=== PATIENT | female | born 1950 | race Caucasian/White ===

== ENCOUNTER 2018-04-11 15:11 | Emergency (ER) | payer MEDICARE, MEDICAID ==
[~2018-04-11] VITALS: Ht 167.6 cm; Wt 108.0 kg
[2018-04-11 15:16] VITALS: BP 144/119
[2018-04-11] MEDS ORDERED: DILTIAZEM 25 MG/5 ML INJ (CARDIZEM) VIAL IVP ONE (15:30)
[2018-04-11] MEDS ORDERED: ASPIRIN 81 MG CHEW (CHILDREN'S ASA) PO ONE (15:30)
--- NOTE | 2018-04-11 15:30 | ED General ---
General Stated Complaint: ELEV BP/AFIB Source of Information: Patient Exam Limitations: No Limitations History of Present Illness Date Seen by Provider: Apr 11, 2018 Time Seen by Provider: 15:26 Initial Comments To ER from Dr. Cottrell's office by private vehicle with reports of atrial fibrillation and hypertension. She was there for outpatient cataract surgery. This was to be done on the right eye. She had an IV started and was given 2 mg of Versed. Her heart rate was noted to be elevated as was her blood pressure. She was given 5 mg of labetalol IV. After identifying the arrhythmia they sent her to the emergency room. Upon arrival to the emergency room the patient states that she has been told that she has atrial fibrillation before. She formerly saw Dr. Law from cardiology at [facility] about 2 years ago. She states that she was advised she should take warfarin but because it spelled " rat poison" she wasn't going to take it. She also didn't want to take any new medications that hadn't been on the market for very long to them the blood. She is aware of the associated stroke risk stating "I know I know" when I discussed with her the risk of stroke associated with atrial fibrillation. On arrival to the emergency room she is tachycardic anywhere from 120-140 atrial fibrillation and hypertensive. Discussed with the patient that she would likely need to be admitted for cardiac evaluation and she states "no, I'll sign out AGAINST MEDICAL ADVICE, I have a sick puppy at home." Timing/Duration: 1-2 Days Severity: Moderate Allergies and Home Medications Allergies Coded Allergies: No Known Drug Allergies (Unverified , 04/11/18) Home Medications Apixaban 5 Mg Tablet, 5 MG PO BID Prescribed by: GRACE PIMENTEL on 04/11/18 1643 Diltiazem HCl 180 Mg Cap.er.24h, 180 MG PO DAILY Prescribed by: GRACE PIMENTEL on 04/11/18 1616 Patient Home Medication List Home Medication List Reviewed: Yes Review of Systems Review of Systems Constitutional: see HPI EENTM: see HPI Respiratory: no symptoms reported; No cough, No dyspnea on exertion, No short of breath Cardiovascular: no symptoms reported Genitourinary: no symptoms reported Musculoskeletal: no symptoms reported Skin: no symptoms reported Psychiatric/Neurological: No Symptoms Reported Hematologic/Lymphatic: No Symptoms Reported Past Nbdjuzw-Ymglvm-Ennhht Hx Patient Social History Recent Foreign Travel: No Contact w/Someone Who Travel: No Physical Exam Vital Signs Vital Signs - First Documented 04/11/18 15:16 Temp 98.0 Pulse 130 Resp 26 B/P (MAP) 144/119 (127) Pulse Ox 98 O2 Delivery Room Air Capillary Refill : Height, Weight, BMI Height: '" Weight: lbs. oz. kg; BMI Method: General Appearance: No Apparent Distress, WD/WN Eyes: Bilateral Eye Normal Inspection, Bilateral Eye PERRL, Bilateral Eye EOMI HEENT: PERRL/EOMI Neck: Full Range of Motion, Normal Inspection Respiratory: Normal Breath Sounds, No Accessory Muscle Use, No Respiratory Distress Cardiovascular: Normal Peripheral Pulses, Tachycardia Gastrointestinal: Normal Bowel Sounds, Non Tender, Soft Extremity: Normal Capillary Refill, Normal Inspection Neurologic/Psychiatric: Alert, Oriented x3, No Motor/Sensory Deficits Skin: Normal Color (Right), Warm/Dry Progress/Results/Core Measures Suspected Sepsis SIRS Temperature: Pulse: Respiratory Rate: Laboratory Tests 04/11/18 15:35: White Blood Count 7.8 Blood Pressure / Mean: Laboratory Tests 04/11/18 15:35: Creatinine 0.77, INR Comment 1.0, Platelet Count 182, Total Bilirubin 0.8 Results/Orders Lab Results Laboratory Tests Test 04/11/18 15:35 Range/Units White Blood Count 7.8 4.3-11.0 10^3/uL Red Blood Count 4.43 4.35-5.85 10^6/uL Hemoglobin 13.6 11.5-16.0 G/DL Hematocrit 40 35-52 % Mean Corpuscular Volume 91 80-99 FL Mean Corpuscular Hemoglobin 31 25-34 PG Mean Corpuscular Hemoglobin Concent 34 32-36 G/DL Red Cell Distribution Width 12.8 10.0-14.5 % Platelet Count 182 130-400 10^3/uL Mean Platelet Volume 10.4 7.4-10.4 FL Neutrophils (%) (Auto) 65 42-75 % Lymphocytes (%) (Auto) 25 12-44 % Monocytes (%) (Auto) 9 0-12 % Eosinophils (%) (Auto) 1 0-10 % Basophils (%) (Auto) 0 0-10 % Neutrophils # (Auto) 5.1 1.8-7.8 X 10^3 Lymphocytes # (Auto) 1.9 1.0-4.0 X 10^3 Monocytes # (Auto) 0.7 0.0-1.0 X 10^3 Eosinophils # (Auto) 0.1 0.0-0.3 10^3/uL Basophils # (Auto) 0.0 0.0-0.1 10^3/uL Prothrombin Time 13.3 12.2-14.7 SEC INR Comment 1.0 0.8-1.4 Activated Partial Thromboplast Time 24 24-35 SEC Sodium Level 140 135-145 MMOL/L Potassium Level 3.6 3.6-5.0 MMOL/L Chloride Level 106 98-107 MMOL/L Carbon Dioxide Level 22 21-32 MMOL/L Anion Gap 12 5-14 MMOL/L Blood Urea Nitrogen 9 7-18 MG/DL Creatinine 0.77 0.60-1.30 MG/DL Estimat Glomerular Filtration Rate > 60 BUN/Creatinine Ratio 12 Glucose Level 102 70-105 MG/DL Calcium Level 10.4 H 8.5-10.1 MG/DL Corrected Calcium 10.2 H 8.5-10.1 MG/DL Magnesium Level 1.9 1.8-2.4 MG/DL Total Bilirubin 0.8 0.1-1.0 MG/DL Aspartate Amino Transf (AST/SGOT) 16 5-34 U/L Alanine Aminotransferase (ALT/SGPT) 16 0-55 U/L Alkaline Phosphatase 74 40-136 U/L Myoglobin 46.4 10.0-92.0 NG/ML Troponin I < 0.30 <0.30 NG/ML B-Type Natriuretic Peptide 193.5 H <100.0 PG/ML Total Protein 7.3 6.4-8.2 GM/DL Albumin 4.3 3.2-4.5 GM/DL My Orders Orders - GRACE PIMENTEL SNOW BLOWER Cbc With Automated Diff (04/11/18 15:22) Magnesium (04/11/18 15:22) Chest 1 View, Ap/Pa Only (04/11/18 15:22) Ekg Tracing (04/11/18 15:22) Cardiac Profile 1 (04/11/18 15:22) Comprehensive Metabolic Panel (04/11/18 15:22) Myoglobin Serum (04/11/18 15:22) Protime With Inr (04/11/18 15:22) Partial Thromboplastin Time (04/11/18 15:22) O2 (04/11/18 15:22) Monitor-Rhythm Ecg Trace Only (04/11/18 15:22) Lipid Panel (04/12/18 06:00) Saline Lock/Iv-Start (04/11/18 15:22) BNP (04/11/18 15:22) Aspirin Chewable Tablet (Baby Aspirin Ch (04/11/18 15:30) Diltiazem Injection (Cardizem Injection) (04/11/18 15:30) Medications Given in ED Current Medications Medications Dose Ordered Sig/Ralph Route Start Time Stop Time Status Last Admin Dose Admin Aspirin 324 mg ONCE ONCE PO 04/11/18 15:30 04/11/18 15:31 DC 04/11/18 15:34 324 MG Diltiazem HCl 10 mg ONCE ONCE IVP 04/11/18 15:30 04/11/18 15:31 DC 04/11/18 15:36 10 MG Vital Signs/I&O 04/11/18 15:16 Temp 98.0 Pulse 130 Resp 26 B/P (MAP) 144/119 (127) Pulse Ox 98 O2 Delivery Room Air Capillary Refill : Departure Communication (Admissions) 1545-heart rate down to 105 atrial fibrillation. This is after 10 mg bolus of Cardizem. A did thoroughly discuss the increased risk of life ending her life altering stroke as a result of her atrial fibrillation not treated 1617- heart rate is 98, still atrial fibrillation. Blood pressure 120/100. Labs thus far are unremarkable. Awaiting myoglobin and troponin. I will give her a prescription for oral Cardizem 180 mg by mouth daily at home #20 andEliquis 5 mg by mouth twice a day #30. . After discussion about stroke risk, she does ultimately agree to take Eliquis. She states that she has a friend on this and she would agree to try it. I discussed with her the risks of gastrointestinal bleeding, or intracranial or intra-abdominal bleeding after an accident. If she is ever injured she should be evaluated. She agrees. She also agrees to let her tobacco sweeper no about this blood thinner before proceeding with any additional attempts at cataract surgery. She will call Dr. Clayton to make an appointment to be seen tomorrow. She still wishes to sign out AGAINST MEDICAL ADVICE. 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 Decision time for Depature: 15:30 Referrals: CHELSY HANSEN DO (PCP) Primary Care Physician RASHEL LYNNE MD FACP [facility] Kathy SIERRA MD, BASHAR J MD Patient Instructions: Atrial Fibrillation (DC) Scripts Apixaban (Eliquis) 5 Mg Tablet 5 MG PO BID, #30 TAB Prov: GRAEC PIMENTEL APRN 04/11/18 Diltiazem HCl (Cardizem Cd) 180 Mg Cap.er.24h 180 MG PO DAILY, #20 CAP Prov: GRACE PIMENTEL APRN 04/11/18 GRACE PIMENTEL APRN Apr 11, 2018 15:30
[2018-04-11 15:50] LABS: BASOPHILS % (AUTO) 0 % (0-10); EOSINOPHILS # (AUTO) 0.1 10^3/uL (0.0-0.3); EOSINOPHILS % (AUTO) 1 % (0-10); HEMATOCRIT 40 % (35-52); HEMOGLOBIN 13.6 G/DL (11.5-16.0); LYMPHOCYTES # (AUTO) 1.9 X 10^3 (1.0-4.0); LYMPHOCYTES % (AUTO) 25 % (12-44); MEAN CORPUSCULAR HEMOGLOBIN 31 PG (25-34); MEAN CORPUSCULAR HGB CONC 34 G/DL (32-36); MEAN CORPUSCULAR VOLUME 91 FL (80-99); MEAN PLATELET VOLUME 10.4 FL (7.4-10.4); MONOCYTES # (AUTO) 0.7 X 10^3 (0.0-1.0); MONOCYTES % (AUTO) 9 % (0-12); NEUTROPHILS # (AUTO) 5.1 X 10^3 (1.8-7.8); NEUTROPHILS % (AUTO) 65 % (42-75); PLATELET COUNT 182 10^3/uL (130-400); RED BLOOD COUNT 4.43 10^6/uL (4.35-5.85); RED CELL DISTRIBUTION WIDTH 12.8 % (10.0-14.5); WHITE BLOOD COUNT 7.8 10^3/uL (4.3-11.0)
[2018-04-11 16:04] LABS: PROTHROMBIN TIME PATIENT 13.3 SEC (12.2-14.7)
[2018-04-11 16:09] LABS: ALANINE AMINOTRANSFERASE 16 U/L (0-55); ALBUMIN 4.3 GM/DL (3.2-4.5); ALKALINE PHOSPHATASE 74 U/L (40-136); BILIRUBIN,TOTAL 0.8 MG/DL (0.1-1.0); BUN/CREATININE RATIO 12; CALCIUM 10.4 MG/DL (8.5-10.1); CARBON DIOXIDE 22 MMOL/L (21-32); CHLORIDE 106 MMOL/L (98-107); CREATININE SERUM 0.77 MG/DL (0.60-1.30); GFR ESTIMATED > 60; GLUCOSE 102 MG/DL (70-105); MAGNESIUM 1.9 MG/DL (1.8-2.4); POTASSIUM 3.6 MMOL/L (3.6-5.0); SODIUM 140 MMOL/L (135-145); TOTAL PROTEIN 7.3 GM/DL (6.4-8.2)
[2018-04-11 16:16] LABS: MYOGLOBIN SERUM 46.4 NG/ML (10.0-92.0)
[2018-04-11] MEDS ORDERED: DILT180C67 PO (16:16)
--- NOTE | 2018-04-11 16:30 | Diagnostic Imaging Report ---
INDICATION: Hypertension and AFib. FINDINGS: There is cardiomegaly. Mediastinum is unremarkable. Lungs are clear. There is no pleural effusion or pneumothorax. IMPRESSION: No acute cardiopulmonary abnormality. Cardiomegaly. Dictated by: Dictated on workstation # [id number]
[2018-04-11] MEDS ORDERED: APIX5TAB PO (16:43)
== END 2018-04-11 16:30 | disposition left against medical advice (07) ==
LOC: EDUNIT# 15:11 → ER 15:12
DX: I48.91 Unspecified atrial fibrillation (principal); I10 Essential (primary) hypertension; Z79.01 Long term (current) use of anticoagulants
CPT/HCPCS: 36415; 71045; 80053; 83735; 83874; 83880; 84484; 85025; 85610; 85730; 93005; 93041; 96374

== ENCOUNTER → 2018-05-15 | Day surgery (SDC) | payer MEDICARE, MEDICAID ==
[2018-05-15] VITALS (9 sets, daily range): BP systolic 132–155; BP diastolic 71–103
[~2018-05-15] VITALS: Ht 165.1 cm; Wt 108.0 kg
[~2018-05-15] MED LIST: ACET-2267 PO; APIX5TAB PO; APIXABAN 5 MG (ELIQUIS) TABLET PO ONE; DILT180C54 PO; DILT180C67 PO; DIPH25CA79 PO; FLU QUADRIvalent (5+ YOA) 2018-2019 (AFLURIA) 0.5 ML IM ONE; FURO20TA4 PO; HURRICAINE EXT TUBE (BENZOCAINE) XX PRN; HYDR-3820 PO; LEVO75TA6 PO; LIDOCAINE 2% VISCOUS 15 ML UDC PO ONE; LISI-552 PO; METO50TA15 PO; METO5TAB75 PO; MIDAZOLAM 5 MG/5 ML (VERSED) VIAL IV PRN; NITR0.4T39 SL; NS IV 1000 ML 1,000 ML IV ONE; NS IV 1000 ML 1,000 ML IV SCH; PRD10T PO; fentaNYL INJECTION 100 MCG/2 ML AMP INJ PRN; proPOfol 200 MG/20 ML (DIPRIVAN) VIAL IV ONE
[2018-05-15 08:42] LABS: HEMOGLOBIN 14.7 G/DL (11.5-16.0); MEAN PLATELET VOLUME 10.4 FL (7.4-10.4); RED BLOOD COUNT 4.87 10^6/uL (4.35-5.85); RED CELL DISTRIBUTION WIDTH 13.6 % (10.0-14.5); WHITE BLOOD COUNT 12.6 10^3/uL (4.3-11.0)
--- NOTE | 2018-05-15 08:43 | Diagnostic Imaging Report ---
INDICATION: Atrial fibrillation. Compared 04/11/2018. Enlargement of the cardiac silhouette unchanged in magnitude and configuration. No failure pattern. No pneumonia, effusion or pneumothorax. IMPRESSION: Unchanged enlargement of the cardiac silhouette. No failure pattern or acute pathology superimposed. Dictated by: Dictated on workstation # [id number]
[2018-05-15 08:55] LABS: INR 1.3 (0.8-1.4); PROTHROMBIN TIME PATIENT 16.6 SEC (12.2-14.7)
[2018-05-15 09:05] LABS: ALANINE AMINOTRANSFERASE 18 U/L (0-55); ALBUMIN 4.5 GM/DL (3.2-4.5); ALKALINE PHOSPHATASE 101 U/L (40-136); BUN/CREATININE RATIO 18; CALCIUM 10.9 MG/DL (8.5-10.1); CARBON DIOXIDE 24 MMOL/L (21-32); CHLORIDE 103 MMOL/L (98-107); CHOLESTEROL 196 MG/DL (< 200); CREATININE SERUM 0.88 MG/DL (0.60-1.30); GFR ESTIMATED > 60; GLUCOSE 115 MG/DL (70-105); HDL CHOLESTEROL 49 MG/DL (40-60); POTASSIUM 3.7 MMOL/L (3.6-5.0); SODIUM 140 MMOL/L (135-145); TOTAL PROTEIN 8.1 GM/DL (6.4-8.2); TRIGLYCERIDES 216 MG/DL (<150); VLDL CHOLESTEROL 43 MG/DL (5-40)
--- NOTE | 2018-05-15 09:33 | Cardiac Procedure Note-CS/ASA ---
Pre-Procedure Note Pre-Op Procedure Note H&P Reviewed The H&P was reviewed, patient examined and no changes noted. Date H&P Reviewed: May 15, 2018 Time H&P Reviewed: 09:00 Conscious Sedation Pre-Proced Time 09:00 ASA Score 3 For ASA 3 and 4: Consider anesthesia and medical clearance. Also, for patients with a history of failed moderate sedation consider anesthesia. Airway Lungs Heart ASA score ASA 1: a normal healthy patient ASA 2: a patient with a mild systemic disease (mid diabetes, controlled hypertension, obesity x ASA 3: a patient with a severe systemic disease that limits activity (angina , COPD, prior Myocardial infarction) ASA 4: a patient with an incapacitating disease that is a constant threat to life (CHF, renal failure) ASA 5: a moribund patient not expected to survive 24 hrs. (ruptured aneurysm) ASA 6: a declared brain patient whose organs are being harvested. For emergent operations, add the letter E after the classification Mallampati Classification Grade 3 Sedation Plan Analgesia, Amnesia, Plan communicated to team members, Discussed options with patient/fam, Discussed risks with patient/fam The patient is an appropriate candidate to undergo the planned procedure, sedation, and anesthesia. The patient immediately re-assessed prior to indication. ROBE LONGORIA MD May 15, 2018 09:33
== END ==
LOC: CATH 08:09
PROVIDERS: ATTEND Internal Medicine Cardiovascular Disease
DX: I34.0 Nonrheumatic mitral (valve) insufficiency (principal); Q21.1 Atrial septal defect; E03.9 Hypothyroidism, unspecified; I48.0 Paroxysmal atrial fibrillation; I10 Essential (primary) hypertension; E66.9 Obesity, unspecified; E11.9 Type 2 diabetes mellitus without complications; F41.0 Panic disorder [episodic paroxysmal anxiety]; K58.9 Irritable bowel syndrome, unspecified
CPT/HCPCS: 36415; 71045; 80053; 80061; 84443; 85027; 85610; 85730; 87081; 93005; 93312; 93320; 93325